=== PATIENT | female | born 1990 | race Caucasian/White ===

== ENCOUNTER 2018-01-04 18:12 | Emergency (ER) | payer OTHER ==
[2018-01-04] MEDS ORDERED: IBUPROFEN 800 MG TAB PO (21:00)
[2018-01-04] MEDS: ACETAMINOPHEN 325 MG TAB PO (21:08)
[2018-01-04 21:14] LABS: URINE BLOOD (Dip) POC Negative (NEGATIVE); URINE GLUCOSE (Dip) POC Negative (NEGATIVE); URINE KETONES (Dip) POC Negative (NEGATIVE); URINE LEUKOCYTE EST (Dip) POC Negative (NEGATIVE); URINE NITRITE (Dip) POC Negative (NEGATIVE); URINE TOTAL PROTEIN POC Negative (NEGATIVE)
== END 2018-01-04 22:25 | disposition home or self-care (01) ==
LOC: FTE 18:12
DX: S00.83XA Contusion of other part of head, initial encounter (principal); W22.8XXA Striking against or struck by other objects, initial encounter; Y92.009 Unspecified place in unspecified non-institutional (private) residence as the place of occurrence of the external cause
CPT/HCPCS: 70450; 81003; 81025; 99284-25

== ENCOUNTER 2018-01-18 11:01 | Emergency (ER) | payer OTHER ==
[2018-01-18 12:58] LABS: ADD MAN DIFF? NO
[2018-01-18 13:01] LABS: WHITE BLOOD COUNT 13.1 10^3/ul (4.8-10.8)
[2018-01-18 13:01] LABS: BASOPHILS % 0.3 % (0.0-2.0); EOSINOPHILS % 0.2 % (0.0-7.0); HEMATOCRIT 38.9 % (37.0-47.0); HEMOGLOBIN 12.7 g/dl (12.0-16.0); LYMPHOCYTES # 1.9 10^3/ul (0.8-2.9); LYMPHOCYTES % 14.2 % (15.0-51.0); MEAN CORPUSCULAR HEMOGLOBIN 31.4 pg (29.0-33.0); MEAN CORPUSCULAR HGB CONC 32.6 g/dl (32.0-37.0); MEAN PLATELET VOLUME 10.4 fl (7.4-10.4); MONOCYTE # 0.8 10^3/ul (0.3-0.9); NEUTROPHIL # 10.3 10^3/ul (1.6-7.5); NEUTROPHILS % 78.9 % (39.0-77.0); PLATELET COUNT 277 10^3/UL (140-415); RED BLOOD COUNT 4.05 10^6/ul (4.20-5.40); RED CELL DISTRIBUTION WIDTH 13.1 % (11.5-14.5)
[2018-01-18 13:21] LABS: ALANINE AMINOTRANSFERASE 26 IU/L (13-69); ALBUMIN 4.1 g/dl (3.3-4.9); ALBUMIN/GLOBULIN RATIO 1.13; ALKALINE PHOSPHATASE 64 IU/L (42-121); ANION GAP 14 (8-16); ASPARTATE AMINO TRANSFERASE 19 IU/L (15-46); BILIRUBIN,INDIRECT 0.6 mg/dl (0-1.1); BILIRUBIN,TOTAL 0.6 mg/dl (0.2-1.3); BLOOD UREA NITROGEN 14 mg/dl (7-20); CALCIUM 9.6 mg/dl (8.4-10.2); CARBON DIOXIDE 26 mmol/L (21-31); CHLORIDE 103 mmol/L (97-110); CREATININE 0.74 mg/dl (0.44-1.00); GLUCOSE 88 mg/dl (70-220); POTASSIUM 4.1 mmol/L (3.5-5.1); SODIUM 139 mmol/L (135-144); TOTAL PROTEIN 7.7 g/dl (6.1-8.1)
[2018-01-18 13:23] LABS: INR 1.05; PARTIAL THROMBOPLASTIN TIME 24.7 Sec (25.0-35.0); PROTIME 13.8 Sec (11.9-14.9); PT RATIO 1.1
[2018-01-18] MEDS: SOD CHLORIDE 0.9% 1,000 ML IV (13:23)
[2018-01-18] MEDS: DIPHTH/TET/ACEL PERTUSS (ADULT) 0.5 ML VIAL IM* (13:23)
[2018-01-18 13:31] LABS: D-DIMER < 220.00 ng/ml (<460)
[2018-01-18 13:32] LABS: TROPONIN-I < 0.012 ng/ml (0.000-0.120)
[2018-01-18 14:07] LABS: ETHANOL < 10.0 mg/dl
[2018-01-18] MEDS: ONDANSETRON (ODT) 4 MG TAB ODT (15:48)
[2018-01-18] MEDS: HYDROCODONE/APAP (10/325) TAB PO (15:49)
== END 2018-01-18 19:00 | disposition short-term general hospital (02) ==
LOC: E/R 11:01
DX: S62.345A Nondisplaced fracture of base of fourth metacarpal bone, left hand, initial encounter for closed fracture (principal); R55 Syncope and collapse; S00.511A Abrasion of lip, initial encounter; X58.XXXA Exposure to other specified factors, initial encounter; Y92.9 Unspecified place or not applicable; Z23 Encounter for immunization
CPT/HCPCS: 29125; 70450; 71045; 73110-LT; 73130-LT; 80053; 80307; 81025; 84484; 85025; 85378; 85610; 85730; 90471; 90715; 93005; 99285-25

== ENCOUNTER 2018-06-16 02:52 | Emergency (ER) | payer OTHER | END 2018-06-16 06:17 | disposition home or self-care (01) | LOC: FTE 02:52 | DX: R19.7 Diarrhea, unspecified (principal); F17.210 Nicotine dependence, cigarettes, uncomplicated | CPT/HCPCS: 99283; Z7502 ==

== ENCOUNTER 2018-11-24 09:01 | Emergency (ER) | payer OTHER ==
[2018-11-24] MEDS: LORAZEPAM 1 MG TAB PO (11:53)
== END 2018-11-24 13:44 | disposition home or self-care (01) ==
LOC: E/R 09:01
DX: F10.280 Alcohol dependence with alcohol-induced anxiety disorder (principal); F17.210 Nicotine dependence, cigarettes, uncomplicated
CPT/HCPCS: 99283; Z7502

== ENCOUNTER 2019-01-03 13:32 | Emergency (ER) | payer OTHER ==
[2019-01-03 16:31] LABS: ADD MAN DIFF? NO
[2019-01-03] MEDS: PANTOPRAZOLE 40 MG INJ IV (16:31)
[2019-01-03] MEDS: SOD CHLORIDE 0.9% 1,000 ML IV (16:31)
[2019-01-03 16:37] LABS: BASOPHILS % 0.2 % (0.0-2.0); HEMATOCRIT 41.8 % (37.0-47.0); HEMOGLOBIN 13.6 g/dl (12.0-16.0); LYMPHOCYTES # 1.9 10^3/ul (0.8-2.9); LYMPHOCYTES % 15.2 % (15.0-51.0); MEAN CORPUSCULAR HEMOGLOBIN 31.6 pg (29.0-33.0); MEAN CORPUSCULAR HGB CONC 32.5 g/dl (32.0-37.0); MEAN CORPUSCULAR VOLUME 97.2 fl (82.0-101.0); MEAN PLATELET VOLUME 9.6 fl (7.4-10.4); MONOCYTE # 0.4 10^3/ul (0.3-0.9); MONOCYTES % 3.5 % (0.0-11.0); NEUTROPHIL # 10.1 10^3/ul (1.6-7.5); NEUTROPHILS % 80.7 % (39.0-77.0); PLATELET COUNT 256 10^3/UL (140-415); RED CELL DISTRIBUTION WIDTH 13.6 % (11.5-14.5)
[2019-01-03 16:37] LABS: WHITE BLOOD COUNT 12.5 10^3/ul (4.8-10.8)
[2019-01-03 16:56] LABS: INR 0.91; PROTIME 12.4 Sec (11.9-14.9)
[2019-01-03 16:57] LABS: PARTIAL THROMBOPLASTIN TIME 25.6 Sec (23.0-35.0)
[2019-01-03 17:00] LABS: ALANINE AMINOTRANSFERASE 34 IU/L (13-69); ALBUMIN 4.6 g/dl (3.3-4.9); ALBUMIN/GLOBULIN RATIO 1.39; ALKALINE PHOSPHATASE 79 IU/L (42-121); ANION GAP 15 (5-13); ASPARTATE AMINO TRANSFERASE 42 IU/L (15-46); BILIRUBIN,INDIRECT 0.4 mg/dl (0-1.1); BILIRUBIN,TOTAL 0.4 mg/dl (0.2-1.3); BLOOD UREA NITROGEN 13 mg/dl (7-20); CALCIUM 8.8 mg/dl (8.4-10.2); CARBON DIOXIDE 22 mmol/L (21-31); CHLORIDE 102 mmol/L (97-110); CREATININE 0.71 mg/dl (0.44-1.00); Estimated GFR > 60 mL/min (>60); GLUCOSE 66 mg/dl (70-220); LIPASE 66 U/L (23-300); POTASSIUM 3.8 mmol/L (3.5-5.1); SODIUM 139 mmol/L (135-144); TOTAL PROTEIN 7.9 g/dl (6.1-8.1)
[2019-01-03 17:12] LABS: TROPONIN-I < 0.012 ng/ml (0.000-0.120)
== END 2019-01-03 18:29 | disposition home or self-care (01) ==
LOC: E/R 13:32
DX: F41.9 Anxiety disorder, unspecified (principal); F10.239 Alcohol dependence with withdrawal, unspecified; F17.210 Nicotine dependence, cigarettes, uncomplicated
CPT/HCPCS: 36415; 80053; 81025; 83690; 84484; 85025; 85610; 85730; 86850; 86900; 86901; 93005; 96361; 96374; 99284-25